=== PATIENT | female | born 1960 | race Caucasian/White ===

== ENCOUNTER 2016-09-16 11:20 | Emergency (ER) | payer OTHER ==
[~2016-09-16] VITALS: Ht 162.6 cm; Wt 61.4 kg
[~2016-09-16 11:20] MED LIST: ADVIL200 MG PO; ATIVAN0.5 MG PO; CATAPRES0.1 MG PO; CLARITIN10 M3 PO; CRESTOR5 MG PO; FENOFIBRATE160 M1 PO; FLONASE ALLERG9.9 ML BOTH NARES; FLONASE16 G1 BOTH NARES; LASIX20 MG PO; LIDODERM 5% P1 PATCH TD; LISINOPRIL5 MG PO; LYRICA50 MG PO; MOTRIN800 MG PO; OMEPRAZOLE20 MG PO; PEPCID40 MG PO; PERCOCET 7.51 TABLET PO; PRILOSEC20 MG PO; VITAMIN D250000 UNIT PO; VOLTAREN 1% GE100 GM TP; XANAX0.5 MG PO; ZANAFLEX4 M1 PO; ZOLOFT50 MG PO
[2016-09-16 13:49] LABS: HEMATOCRIT 45.6 % (36.0-46.0); MCH 30.7 PG (29.0-34.0); MCHC 32.5 G/DL (30.0-36.0); MCV 94.6 FL (83-99); MEAN PLAT.VOLUME 9.9 uM^3 (9.5-12.4); PLATELET COUNT 390 K/uL (156-360); RBC DIS.WIDTH-CV 12.6 % (11.8-14.6); RBC DIS.WIDTH-SD 43.8 % (39-53); RED BLOOD COUNT 4.82 M/uL (3.80-5.20)
[2016-09-16 14:02] LABS: CHLORIDE 102 mEq/L (99-109)
[2016-09-16 14:03] LABS: POTASSIUM 4.2 mEq/L (3.7-5.4); SODIUM 140 mEq/L (136-147)
[2016-09-16 14:04] LABS: GLUCOSE 77 mg/dL (70-99)
[2016-09-16 14:06] LABS: ANION GAP 13 MEQ/L (2-14)
[2016-09-16 14:08] LABS: GFR ESTIMATE (CALCULATED) 46 mL/min/
[2016-09-16 14:09] LABS: UREA NITROGEN (BUN) 27 mg/dL (9-23)
[2016-09-16 16:04] VITALS: BP 115/65
== END 2016-09-16 16:05 | disposition home or self-care (01) ==
LOC: EME 11:20
PROVIDERS: Nurse Practitioner Family
DX: S16.1XXA Strain of muscle, fascia and tendon at neck level, initial encounter (principal); M62.838 Other muscle spasm; G89.29 Other chronic pain; V43.52XA Car driver injured in collision with other type car in traffic accident, initial encounter
CPT/HCPCS: 71020; 72125; 80048; 85027; 99281; 99284

== ENCOUNTER 2017-08-11 09:16 | Emergency (ER) | payer OTHER ==
[~2017-08-11] VITALS: Ht 160 cm; Wt 63.7 kg
[2017-08-11 10:28] LABS: HEMATOCRIT 39.9 % (36.0-46.0); HEMOGLOBIN 13.6 G/DL (11.9-15.5); MCH 32.7 PG (29.0-34.0); MCHC 34.1 G/DL (30.0-36.0); MCV 95.9 FL (83-99); PLATELET COUNT 264 K/uL (156-360); RBC DIS.WIDTH-CV 12.9 % (11.8-14.6); RBC DIS.WIDTH-SD 45.8 % (39-53); RED BLOOD COUNT 4.16 M/uL (3.80-5.20); WHITE BLOOD COUNT 4.6 K/uL (4.1-10.2)
[2017-08-11 10:38] LABS: ALBUMIN 3.9 g/dL (3.2-4.8); D-DIMER ELISA < 150.00 ng/mLDDU (<230)
[2017-08-11 10:39] LABS: CHLORIDE 112 mEq/L (99-109); POTASSIUM 3.7 mEq/L (3.7-5.4); SODIUM 146 mEq/L (136-147)
[2017-08-11 10:41] LABS: GLUCOSE 77 mg/dL (70-99); TOTAL PROTEIN 6.7 g/dL (6.4-8.3)
[2017-08-11 10:43] LABS: TOTAL BILIRUBIN 0.2 mg/dL (0.0-1.0)
[2017-08-11 10:44] LABS: ALKALINE PHOSPHATASE 106 IU/L (3-129)
[2017-08-11 10:45] LABS: CREATININE 0.9 mg/dL (0.6-1.3); GFR ESTIMATE (CALCULATED) > 59 mL/min/
[2017-08-11 10:46] LABS: AST (GOT) 16 IU/L (2-34); UREA NITROGEN (BUN) 17 mg/dL (9-23)
[2017-08-11 10:48] LABS: ALT (GPT) 15 IU/L (3-49)
[2017-08-11 10:56] LABS: TROP-I INTERPRETATION NEGATIVE; TROPONIN-I < 0.01 ng/mL (0.0-0.30)
[2017-08-11 11:47] VITALS: BP 148/82
== END 2017-08-11 11:48 | disposition home or self-care (01) ==
LOC: EME 09:16
PROVIDERS: Nurse Practitioner Acute Care
DX: R07.9 Chest pain, unspecified (principal); S22.42XA Multiple fractures of ribs, left side, initial encounter for closed fracture; E78.5 Hyperlipidemia, unspecified; F41.9 Anxiety disorder, unspecified; R11.0 Nausea; R06.02 Shortness of breath; M19.90 Unspecified osteoarthritis, unspecified site; E20.9 Hypoparathyroidism, unspecified; Z90.710 Acquired absence of both cervix and uterus; Z88.2 Allergy status to sulfonamides
CPT/HCPCS: 71046; 80053; 84484; 85027; 85379; 93005; 99281; 99284